=== PATIENT | female | born 1950 | race American Indian/Alaskan Native ===

== ENCOUNTER 2017-03-05 00:48 | Emergency (ER) | payer MEDICARE ==
[2017-03-05 01:04] LABS: Basophils # (Auto) 0.1 K/mm3 (0.0-0.1); Basophils % (Auto) 0.7 % (0.0-1.8); Eosinophils % (Auto) 0.3 % (0.0-4.3); Hematocrit 42.8 % (30.3-42.9); Hemoglobin 14.4 gm/dl (10.1-14.3); Lymphocytes # (Auto) 1.1 K/mm3 (1.2-5.4); Lymphocytes % (Auto) 15.2 % (13.4-35.0); Mean Corpuscular HGB Conc 34 % (30-34); Mean Corpuscular Hemoglobin 32 pg (28-32); Mean Corpuscular Volume 94 fl (79-97); Monocytes # (Auto) 0.3 K/mm3 (0.0-0.8); Monocytes % (Auto) 4.3 % (0.0-7.3); Platelet Count 167 K/mm3 (140-440); Red Blood Count 4.54 M/mm3 (3.65-5.03); Red Cell Distribution Width 14.3 % (13.2-15.2)
--- NOTE | 2017-03-05 01:16 | Cat Scan Report ---
FINAL REPORT EXAM: CT HEAD/BRAIN WO CON HISTORY: neuro deficits < 6hrs or sx present upon awakening TECHNIQUE: Routine axial imaging was obtained of the brain without IV contrast. There are no previous studies available for comparison. FINDINGS: There is an acute parenchymal hemorrhage centered in the right thalamus measuring 3.4 cm x 2.8 cm. There is extension of blood into the right lateral ventricle. There is approximately 3 millimeters of right to left midline shift. There is a small amount of blood in the 3rd ventricle also. There is developing hydrocephalus in both lateral ventricles as well as the 3rd ventricle. The 4th ventricle is not enlarged. There is diminished attenuation of the periventricular and deep white matter bilaterally compatible chronic microvascular disease changes. There is slight effacement of the basal cisterns. In the left middle cranial fossa there is a 10.3 millimeter calcified lesion abutting the inner table of the skull most likely representing an incidental meningioma. There is no mass effect. 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 The visualized sinuses are clear. 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 The calvarium appears intact. IMPRESSION: Acute parenchymal hemorrhage in the right thalamus measuring 3.4 cm x 2.8 cm with extension of blood into the left right lateral ventricle and 3rd ventricle. Developing obstructive hydrocephalus in both lateral and 3rd ventricles. Slight effacement of the basal cisterns. Approximately 2-3 millimeters of right to left midline shift. 10.3 millimeter calcified lesion abutting the inner table of the middle cranial fossa laterally most likely representing an incidental meningioma. The findings were discussed with Dr. Gandhi at 1:12 a.m. on 03/05/2017.
--- NOTE | 2017-03-05 01:19 | Emergency Department Report ---
ED General Adult HPI - General Chief complaint: Neuro Symptoms/Deficit Stated complaint: POSS CVA Time Seen by Provider: 03/05/17 01:10 Source: EMS Mode of arrival: Stretcher Limitations: No Limitations - History of Present Illness Initial comments: Patient is a 66-year-old female past medical history of hypertension history is limited due to patient's condition. History is obtained by EMS. . Who presents with left-sided weakness after falling from a couch. Around 10:40 PM. Patient's daughter states that patient was on antihypertensives but she stopped taking them in 2014. Per EMS patient was able to withdraw on her right side due to painful stimuli she makes incomprehensible sounds but she is not moving her left side. Patient's left pupil is dilated at 6 mm - Related Data Allergies Allergy/AdvReac Type Severity Reaction Status Date / Time No Known Allergies Allergy Verified 03/05/17 01:30 ED Review of Systems ROS: Stated complaint: POSS CVA Other details as noted in HPI Comment: Unobtainable due to pts medical conditions ED Past Medical Hx - Social History Smoking Status: Never Smoker ED Physical Exam - General Limitations: No Limitations General appearance: obtunded - Head Head exam: Present: atraumatic, normocephalic - Eye Eye exam: Present: other (6mm pupil and 3mm pupil on the right ) - Respiratory Respiratory exam: Present: normal lung sounds bilaterally - Cardiovascular Cardiovascular Exam: Present: regular rate - Neurological Exam Neurological exam: Present: other (GCS of 8 ) - Skin Skin exam: Present: warm ED Course - Consultations Consultation #1: 03/05/17 01:[address] Harrington neurocritical care doctor. Patient is to be on a nicardipine gtt and patient will be intubated and will be on propofol. I also discussed with patient's daughter that the outcome is likely to be very poor. Dr. Harrington states that the patient is to be airlifted and to go to [facility]. - Intubation Time Out Performed: Yes Sedative: Etomidate Mg Given: 10 Paralytic: Succinylcholine Mg Given: 100 Laryngoscope: Lizbeth Size: 3 ET Tube Size: 7.5 Tube Secured Depth (cm): 24 Tube Secured Location: lips Tube Placement Confirmation: visualized tube passing t Patient Tolerated Procedure: well Intubation Complications: none ED Medical Decision Making - Lab Data Result diagrams: 03/05/17 00:50 03/05/17 00:50 Lab Results 03/05/17 03/05/17 03/05/17 Range/Units 00:50 00:50 00:50 WBC 7.2 (4.5-11.0) K/mm3 RBC 4.54 (3.65-5.03) M/mm3 Hgb 14.4 H (10.1-14.3) gm/dl Hct 42.8 (30.3-42.9) % MCV 94 (79-97) fl MCH 32 (28-32) pg MCHC 34 (30-34) % RDW 14.3 (13.2-15.2) % Plt Count 167 (140-440) K/mm3 Lymph % (Auto) 15.2 (13.4-35.0) % Mckinley % (Auto) 4.3 (0.0-7.3) % Eos % (Auto) 0.3 (0.0-4.3) % Baso % (Auto) 0.7 (0.0-1.8) % Lymph # 1.1 L (1.2-5.4) K/mm3 Mckinley # 0.3 (0.0-0.8) K/mm3 Eos # 0.0 (0.0-0.4) K/mm3 Baso # 0.1 (0.0-0.1) K/mm3 Seg Neutrophils % 79.5 H (40.0-70.0) % Seg Neutrophils # 5.8 (1.8-7.7) K/mm3 PT 12.4 (12.2-14.9) Sec. INR 0.88 (0.87-1.13) APTT 23.0 L (24.2-36.6) Sec. Thrombin Time 16.6 (15.1-19.6) Sec. Sodium 137 (137-145) mmol/L Potassium 3.4 L (3.6-5.0) mmol/L Chloride 98.0 (98-107) mmol/L Carbon Dioxide 24 (22-30) mmol/L Anion Gap 18 mmol/L BUN 21 H (7-17) mg/dL Creatinine 1.0 (0.7-1.2) mg/dL Estimated GFR > 60 ml/min BUN/Creatinine Ratio 21 % Glucose 162 H (65-100) mg/dL Calcium 8.7 (8.4-10.2) mg/dL Troponin T < 0.010 (0.00-0.029) ng/mL - Radiology Data Radiology results: report reviewed, image reviewed CT head: Shows acute parenchymal hemorrhage into right thalamus 3.8 x 2.6 cm with bleeding into the right lateral and third ventricle developing obstructive hydrocephalus - Medical Decision Making Chief medical diagnosis: Hemorrhagic stroke differential medical diagnosis: Ischemic stroke, Hypertensive Emergency I will get ct head, Neurology consult, Nicardipine gtt, Pt will also be intubated Due to patient having life-threatening condition patient will be transferred to [facility]. Discussed plan with patient's daughter she agrees with plan also discussed with patient's daughter that patient will likely have a poor outcome. Critical Care Time: Yes Critical care time in (mins) excluding proc time.: 30 Critical care attestation.: If time is entered above; I have spent that time in minutes in the direct care of this critically ill patient, excluding procedure time. ED Disposition Clinical Impression: Intracerebral hemorrhage Qualifiers: Intracerebral hemorrhage etiology: nontraumatic Cerebral hemorrhage location: unspecified cerebral location Laterality: right Qualified Code(s): I61.9 - Nontraumatic intracerebral hemorrhage, unspecified Disposition: DC/TX-70 ANOTHER TYPE HLTHCARE Is pt being admited?: No Does the pt Need Aspirin: No Condition: Serious
[2017-03-05 01:23] LABS: BUN/Creatinine Ratio 21; Blood Urea Nitrogen 21 mg/dL (7-17); Calcium 8.7 mg/dL (8.4-10.2); Hemolysis Index 3
[2017-03-05] MEDS ORDERED: DIPRIVAN 10 MG/ML 1,000 MG/100 ML BOTTLE IV SCH (01:40)
[2017-03-05] MEDS ORDERED: DIPRIVAN 10 MG/ML 1,000 MG/100 ML BOTTLE IV ONE (01:43)
[2017-03-05 01:45] LABS: INR 0.88 (0.87-1.13); Thrombin Time 16.6 Sec. (15.1-19.6)
[2017-03-05] MEDS ORDERED: CARDENE 50 MG in NACL 0.9% 250ML 230 ML IV SCH (02:00)
[2017-03-05] MEDS ORDERED: APRESOLINE ONE (02:15)
--- NOTE | 2017-03-05 02:15 | XRay Report ---
FINAL REPORT EXAM: XR CHEST 1V AP HISTORY: sob TECHNIQUE: A portable semi-erect view of the chest was obtained. There are no previous studies available for comparison. FINDINGS: The tip of the ET tube is extending partially into the left mainstem bronchus. It needs to be pulled back 2.5 cm for optimal positioning. The heart is mildly enlarged. The lungs are not overtly congested. There are no localized infiltrates. There are peripherally calcified breast implants overlying the lung bases. The skeletal structures otherwise unremarkable. IMPRESSION: ET tube needs to be pulled back 2.5 centimeters for optimal positioning. Cardiomegaly. No evidence of localized infiltrates or obvious congestion.
[2017-03-05] MEDS ORDERED: VERSED IV ONE (02:55)
[2017-03-05] MEDS ORDERED: fentaNYL DRIP Premix 2,000 MCG/100 ML BAG IV SCH (03:00)
[2017-03-05] MEDS ORDERED: VERSED IV NR (03:00)
[2017-03-05 03:03] VITALS: BP 170/102
[2017-03-05] MEDS ORDERED: VASELINE LIP THERAPY TP PRN (06:14)
[2017-03-05] MEDS ORDERED: ARTIFICIAL TEARS OPHTH OINT OU PRN (06:14)
[2017-03-05] MEDS ORDERED: NACL 0.9% 500 ML IV SCH (07:00)
== END 2017-03-05 03:05 | disposition other institution (70) ==
LOC: ED 00:48
DX: I61.9 Nontraumatic intracerebral hemorrhage, unspecified (principal)
CPT/HCPCS: 31500; 36415; 51702; 70450; 71045; 80048; 84484; 85025; 85610; 85670; 85730; 99291; J0360; J2250; J2704; J7050; 94002; J3010